=== PATIENT | female | born 1945 | race Caucasian/White ===

== ENCOUNTER 2020-04-30 13:13 | Emergency (ER) | payer OTHER ==
[2020-04-30] MEDS ORDERED: NA CHLORIDE 0.9% 1,000 ML ONE (15:09)
[2020-04-30] MEDS ORDERED: KETOROLAC 30 MG/ML INJ ONE (15:09)
[2020-04-30 15:18] LABS: Absolute Lymphocytes (CBC) 0.7 K/uL (0.7-4.9); Basophils % 0.6 % (0-1.3); Hematocrit 36.6 % (36.0-45.0); Lymphocytes % 15.4 % (15.3-44.8); MPV 7.6 fL (7.6-11.3); RBC Red Blood Cell Count 4.35 M/uL (3.86-4.86)
[2020-04-30 15:45] LABS: ALT/SGPT 22 U/L (12-78); AST/SGOT 18 U/L (15-37); Albumin 3.8 g/dL (3.4-5.0); Alkaline Phosphatase 107 U/L (45-117); BUN Blood Urea Nitrogen 15 mg/dL (7-18); Bicarbonate 31 mmol/L (21-32); Bilirubin Direct 0.1 mg/dL (0-0.2); Bilirubin Total 0.4 mg/dL (0.2-1.0); Glucose Level 101 mg/dL (74-106); Lipase 184 U/L (73-393); Potassium 3.6 mmol/L (3.5-5.1); Protein, Total 7.5 g/dL (6.4-8.2); Sodium Level 140 mmol/L (136-145)
--- NOTE | 2020-04-30 16:15 | RAD REPORT ---
EXAM DESCRIPTION: CT - Abdomen Pelvis W Contrast - 04/30/2020 4:07 pm CLINICAL HISTORY: Abdominal pain COMPARISON: none. TECHNIQUE: Computed axial tomography of the abdomen pelvis was obtained. 100 cc Isovue-300 was admin istered intravenously. Oral contrast was not requested which limits evaluation of bowel. All CT scans are performed using dose optimization technique as appropriate and may include automated exposure control or mA/KV adjustment according to patient size. FINDINGS: Hepatic and splenic granulomata Pancreas, adrenal appear unremarkable. Small renal cysts There is no evidence of diverticulitis. Normal appendix IMPRESSION: No acute abnormality is displayed.
[2020-04-30 16:56] LABS: Urine Blood TRACE (NEG); Urine Glucose NEGATIVE (NEG); Urine Protein NEGATIVE (NEG); Urine Specific Gravity 1.015 (1.005-1.030); Urine pH 6.5 (5.0-7.0)
--- NOTE | 2020-04-30 17:04 | ER ---
Nurse's Notes [facility] Name: Bobbi Eller Age: 75 yrs Sex: Female : 1945 Arrival Date: 04/30/2020 Time: 13:20 Bed 18 Private MD: Jermaine Tafoya Diagnosis: Zoster without complications Presentation: 04/30 13:41 Chief complaint: Patient states: "for the last week or so I have had stomach pains, and jd3 since yesterday I had a rash that started around my back and on my stomach.". Coronavirus screen: At this time, the client does not indicate any symptoms associated with coronavirus-19. Ebola Screen: Patient negative for fever greater than or equal to 101.5 degrees Fahrenheit, and additional compatible Ebola Virus Disease symptoms. Initial Sepsis Screen: Does the patient meet any 2 criteria? No. Patient's initial sepsis screen is negative. Does the patient have a suspected source of infection? No. Patient's initial sepsis screen is negative. Risk Assessment: Do you want to hurt yourself or someone else? Patient reports no desire to harm self or others. Onset of symptoms was April 24, 2020. 13:41 Method Of Arrival: Ambulatory jd3 13:41 Acuity: CECILIA 3 jd3 Historical: - Allergies: 13:44 No Known Allergies; jd3 - Home Meds: 13:44 None [Active]; jd3 - PSHx: 13:44 Hysterectomy; breast cancer; Carpal Tunnel Repair; Knee surgery; thumb; jd3 - Immunization history:: Adult Immunizations up to date. - Social history:: Smoking status: Patient/guardian denies using tobacco, but has a distant history of tobacco abuse. Screenin:23 Abuse screen: Denies threats or abuse. Denies injuries from another. Nutritional sv screening: No deficits noted. Tuberculosis screening: No symptoms or risk factors identified. Fall Risk None identified. Assessment: 15:00 General: Appears in no apparent distress. comfortable, well groomed, well developed, sv Behavior is calm, cooperative, appropriate for age. Pain: Complains of pain in low back area Pain currently is 6 out of 10 on a pain scale. Quality of pain is described as tender, throbbing, Pain began 1 day ago. Is intermittent. Neuro: Level of Consciousness is awake, alert, obeys commands, Oriented to person, place, time, situation, Appropriate for age Moves all extremities. Full function Speech is normal. Respiratory: Airway is patent Respiratory effort is even, unlabored, Respiratory pattern is regular, symmetrical. GI: Abdomen is flat, Abd is soft and non tender X 4 quads. Reports when she did have abd pain it was in the RLQ Patient currently denies abdominal pain. Derm: Skin is intact, Skin is pink, warm \\T\\ dry. Musculoskeletal: Range of motion: intact in all extremities. 15:28 Reassessment: Patient appears in no apparent distress at this time. No changes from sv previously documented assessment. Patient and/or family updated on plan of care and expected duration. Pain level reassessed. Patient is alert, oriented x 3, equal unlabored respirations, skin warm/dry/pink. Vital Signs: 13:44 BP 152 / 82; Pulse 84; Resp 17 S; Temp 99.1(TE); Pulse Ox 97% on R/A; Weight 72.57 kg jd3 (R); Height 5 ft. 1 in. (154.94 cm) (R); Pain 6/10; 15:15 BP 144 / 79; Pulse 71; Resp 16; Pulse Ox 99% ; sv 16:16 Pulse 63; Resp 18; Pulse Ox 96% on R/A; sv 13:44 Body Mass Index 30.23 (72.57 kg, 154.94 cm) jd3 ED Course: 13:20 Patient arrived in ED. mr 13:20 Jermaine Tafoya MD is Private Physician. mr 13:43 Triage completed. jd3 13:45 Arm band placed on. jd3 14:23 Radha Park RN is Primary Nurse. sv 14:23 Patient has correct armband on for positive identification. Bed in low position. Call sv light in reach. Door closed. Head of bed elevated. 14:31 Ritika Mulligan MD is Attending Physician. ma2 15:00 Inserted saline lock: 20 gauge in left antecubital area, using aseptic technique. Blood sv collected. Flushed left antecubital with 5 ml normal saline. 15:24 IV discontinued, intact, bleeding controlled, Pressure dressing applied, per pt request.sv 15:25 Inserted saline lock: 20 gauge in right antecubital area, using aseptic technique. sv Flushed right antecubital with 5 ml normal saline. 15:[address] Scan. sv 15:[address] Scan. sv 16:08 CT Abd/Pelvis - IV Contrast Only In Process Unspecified. EDMS 16:11 Patient moved back from CT. sv 16:11 Awaiting radiology results. sv 17:17 No provider procedures requiring assistance completed. Patient admitted, IV remains in sv place. intact. 19:31 Primary Nurse role handed off by Radha Park RN sv Administered Medications: 15:11 Drug: NS 0.9% 1000 ml Route: IV; Rate: 1 bolus; Site: left antecubital; sv 16:00 Follow up: Response: No adverse reaction; IV Status: Completed infusion; IV Intake: sv 1000ml 15:11 Drug: TORadol 30 mg Route: IVP; Site: left antecubital; sv 16:16 Follow up: Response: No adverse reaction sv Intake: 16:00 IV: 1000ml; Total: 1000ml. sv Outcome: 17:00 Condition: stable sv 17:00 Discharged to home ambulatory. sv 17:00 Discharge instructions given to patient, Instructed on discharge instructions, follow up and referral plans. medication usage, Demonstrated understanding of instructions, follow-up care, medications, Prescriptions given X 4. 17:03 Discharge ordered by . ginger 17:17 Patient left the ED. sv Signatures: Dispatcher [employer] EDMS Radha Park RN RN [facility] Brown, MODESTA Grove RN, Mohammad, MD MD ma2 Corrections: (The following items were deleted from the chart) 13:43 13:41 Onset of symptoms was April 30, 2020 hemant marcos 19:30 17:00 Admitted to Tele accompanied by tech, via wheelchair, room 222, with oxygen, with sv chart, Report called to Karin BYERS sv 19:30 17:00 Condition: stable sv sv 19:30 17:00 Instructed on the need for admit, sv sv
--- NOTE | 2020-04-30 17:04 | EDPHYS ---
Physician Documentation [facility] Name: Bobbi Eller Age: 75 yrs Sex: Female : 1945 Arrival Date: 04/30/2020 Time: 13:20 Bed 18 Private MD: Jermaine Tafoya ED Physician Ritika Mulligan HPI: 04/30 14:51 This 75 yrs old Female presents to ER via Ambulatory with complaints of ma2 Abdominal Pain, Back Pain. 14:51 The patient presents with pain that is acute, with no known mechanism of injury. The ma2 symptoms are located in the right flank . Onset: The symptoms/episode began/occurred gradually, 1 week(s) ago. Associated signs and symptoms: Pertinent negatives: constipation, fever, hematuria. Severity of symptoms: At their worst the symptoms were moderate, in the emergency department the symptoms are unchanged. The patient has not experienced similar symptoms in the past. Historical: - Allergies: 13:44 No Known Allergies; jd3 - Home Meds: 13:44 None [Active]; jd3 - PSHx: 13:44 Hysterectomy; breast cancer; Carpal Tunnel Repair; Knee surgery; thumb; jd3 - Immunization history:: Adult Immunizations up to date. - Social history:: Smoking status: Patient/guardian denies using tobacco, but has a distant history of tobacco abuse. ROS: 14:51 Constitutional: Negative for fever, chills, and weight loss. ma2 14:51 Abdomen/GI: Positive for abdominal pain, Negative for nausea and vomiting, nausea, diarrhea, constipation, abdominal distension, rectal bleeding, bowel incontinence. 14:51 All other systems are negative. Exam: 14:51 Constitutional: This is a well developed, well nourished patient who is awake, alert, ma2 and in no acute distress. Neck: Trachea midline, no thyromegaly or masses palpated, and no cervical lymphadenopathy. Supple, full range of motion without nuchal rigidity, or vertebral point tenderness. No Meningismus. Chest/axilla: Normal chest wall appearance and motion. Nontender with no deformity. No lesions are appreciated. Cardiovascular: Regular rate and rhythm with a normal S1 and S2. No gallops, murmurs, or rubs. Normal PMI, no JVD. No pulse deficits. Respiratory: Lungs have equal breath sounds bilaterally, clear to auscultation and percussion. No rales, rhonchi or wheezes noted. No increased work of breathing, no retractions or nasal flaring. Abdomen/GI: mildly tender to rlq tender, with normal bowel sounds. No distension or tympany. No guarding or rebound. No evidence of tenderness throughout. also has shingle rash on right lower back vesicular not crossing medline MS/ Extremity: Pulses equal, no cyanosis. Neurovascular intact. Full, normal range of motion. Neuro: Awake and alert, GCS 15, oriented to person, place, time, and situation. Cranial nerves II-XII grossly intact. Motor strength 5/5 in all extremities. Sensory grossly intact. Cerebellar exam normal. Normal gait. Vital Signs: 13:44 BP 152 / 82; Pulse 84; Resp 17 S; Temp 99.1(TE); Pulse Ox 97% on R/A; Weight 72.57 kg jd3 (R); Height 5 ft. 1 in. (154.94 cm) (R); Pain 6/10; 15:15 BP 144 / 79; Pulse 71; Resp 16; Pulse Ox 99% ; sv 16:16 Pulse 63; Resp 18; Pulse Ox 96% on R/A; sv 13:44 Body Mass Index 30.23 (72.57 kg, 154.94 cm) jd3 MDM: 14:31 Patient medically screened. [facility] 14:51 Differential diagnosis: Fatigue Fracture Scoliosis sprain. [facility] 17:03 Data reviewed: vital signs, nurses notes. Counseling: I had a detailed discussion with [facility] the patient and/or guardian regarding: the historical points, exam findings, and any diagnostic results supporting the discharge/admit diagnosis, the presence of at least one elevated blood pressure reading (>120/80) during this emergency department visit, the need for outpatient follow up. Response to treatment: the patient's symptoms have markedly improved after treatment. 04/30 14:51 Order name: Basic Metabolic Panel; Complete Time: 15:59 [facility] 04/30 14:51 Order name: CBC with Diff; Complete Time: 15:22 [facility] 04/30 14:51 Order name: Hepatic Function; Complete Time: 15:59 [facility] 04/30 14:51 Order name: Lipase; Complete Time: 15:59 [facility] 04/30 14:51 Order name: CT Abd/Pelvis - IV Contrast Only; Complete Time: 16:24 de2 04/30 16:46 Order name: Urine Dipstick--Ancillary (enter results) 04/30 14:51 Order name: IV Saline Lock; Complete Time: 15:11 de2 04/30 14:51 Order name: Labs collected and sent; Complete Time: 15:11 de2 04/30 14:51 Order name: Urine Dipstick-Ancillary (obtain specimen); Complete Time: 16:55 ma2 Administered Medications: 15:11 Drug: NS 0.9% 1000 ml Route: IV; Rate: 1 bolus; Site: left antecubital; sv 16:00 Follow up: Response: No adverse reaction; IV Status: Completed infusion; IV Intake: sv 1000ml 15:11 Drug: TORadol 30 mg Route: IVP; Site: left antecubital; sv 16:16 Follow up: Response: No adverse reaction sv Disposition: 04/30/20 17:03 Discharged to Home. Impression: Zoster without complications. - Condition is Stable. - Discharge Instructions: Neuropathic Pain, Shingles, Gtpy-rh-Oies. - Prescriptions for Neurontin 300 mg Oral Capsule - take 1 capsule by ORAL route At bedtime; 20 capsule. Acyclovir 400 mg Oral Tablet - take 1 tablet by ORAL route every 8 hours; 30 tablet. Hydrocortisone 0.5 % Topical Cream - apply 1 application by TOPICAL route every 12 hours As needed; 30 gram. Medrol (Kimani) 4 mg Oral Tablets, Dose Pack - take 1 tablet by ORAL route as directed - follow package instructions; 1 packet. - Medication Reconciliation Form, Thank You Letter, Antibiotic Education, Prescription Opioid Use form. - Follow up: Private Physician; When: Tomorrow; Reason: Continuance of care. Signatures: Dispatcher [employer] Radha Block RN RN sv Davies, Jonathon, RN RN jd3 Alzahri, Mohammad, MD MD ma2 Corrections: (The following items were deleted from the chart) 17:17 17:03 04/30/2020 17:03 Discharged to Home. Impression: Zoster without complications. sv Condition is Stable. Forms are Medication Reconciliation Form, Thank You Letter, Antibiotic Education, Prescription Opioid Use. Follow up: Private Physician; When: Tomorrow; Reason: Continuance of care. ma2
[2020-04-30 17:24] VITALS: TEMP 99.1
[2020-04-30 17:25] VITALS: BP 144/79
[2020-04-30 17:27] VITALS: O2SAT 96
== END 2020-04-30 17:17 | disposition home or self-care (01) ==
LOC: ER 13:13
DX: B02.9 Zoster without complications (principal); Z85.3 Personal history of malignant neoplasm of breast
CPT/HCPCS: 96361; 85025; 80048; 36415; 80076; 81003; 83690; 74177; 96374; 99284; Q9967; J7030

== ENCOUNTER → 2021-03-07 | Day surgery (SDC) | payer OTHER ==
[~2021-03-07] MED LIST: Ringers Lactate 1,000 ML IV ONE
--- NOTE | 2021-03-07 22:03 | RAD REPORT ---
EXAM DESCRIPTION: Ultrasound-guided vacuum assisted breast core biopsy CLINICAL HISTORY: Breast mass N60.91 COMPARISON: BREAST/AXILLA, COMPLETE dated 07/11/2016 FINDINGS: Informed consent was obtained and time-out was performed. The patient's right breast was prepped and draped in the usual sterile fashion. 1% lidocaine was used for local anesthetic purposes. This was of the mass in the right breast at the 12 o'clock position w hich was identified on the ultrasound from 02/04/2021 Utilizing aseptic technique and ultrasound guidance, a 12 gauge core biopsy device was used to obtain 3 core specimens through the mass of interest. A post biopsy clip was then placed. All collected material was sent for cytology. Patient tolerated procedure well. IMPRESSION: Successful ultrasound guided core biopsy of a right breast mass.
== END ==
LOC: DS 16:37
PROVIDERS: ATTEND Specialist
DX: N60.91 Unspecified benign mammary dysplasia of right breast (principal)
CPT/HCPCS: 19083; 88305; J7120

== ENCOUNTER 2021-03-23 07:30 | Day surgery (SDC) | payer OTHER ==
[2021-03-23] MEDS ORDERED: CEFAZOLIN/SWI 1gm 1 GM/10 ML SYR ONE (08:12)
[2021-03-23] MEDS ORDERED: Ringers Lactate 1,000 ML IV ONE (08:12)
--- NOTE | 2021-03-23 09:41 | RAD REPORT ---
EXAM DESCRIPTION: NM - Lymphoscintigraphy - 03/23/2021 9:09 am CLINICAL HISTORY: RT BREAST CA COMPARISON: Chest Pa And Lat (2 Views) dated 07/23/2018; Breast Core BX w/US Guidance dated 03/07/2021 ; Follow Up Breast Axilla Comp dated 02/04/2021; 3D DIAG UNI F/U dated 02/04/2021; 3D SCR SUSU RT UNI W/ CAD dated 01/10/2021 FINDINGS: Preoperative lymphoscintigraphy was performed of the right breast. Four separate injection s of 0.4 millicuries technetium sulfur colloid were injected. Immediate scintigraphic shows good loca lization of radiopharmaceutical. IMPRESSION: Successful preoperative right breast lymphoscintigraphy.
[2021-03-23] MEDS ORDERED: FENTANYL CITR 100 MCG/2 ML ONE (10:10)
[2021-03-23] MEDS ORDERED: propofoL 200 MG/20 ML VIAL IV ONE (10:10)
[2021-03-23] MEDS ORDERED: LIDOCAINE 1% MPF 5 ML VIAL ONE (10:10)
[2021-03-23] MEDS ORDERED: BUPIVACAINE 0.25% PF 30 ML VIAL ONE (10:24)
--- NOTE | 2021-03-23 10:40 | RAD REPORT ---
EXAM DESCRIPTION: US - Brst,Preop NL Wire Init w/Guid - 03/23/2021 9:50 am CLINICAL HISTORY: N Right breast carcinoma. COMPARISON: Breast Core BX w/US Guidance dated 03/07/2021 FINDINGS: Preoperative diagnosis: Right breast carcinoma. Post operative diagnosis: Same. Conscious Sedation: None Fluoroscopy time: None Contrast used: None Estimated blood loss: Minimal The right breast was prepped and draped in the usual sterile fashion. 1% lidocaine was infiltrated in to the subcutaneous tissues for local anesthesia. Utilizing ultrasound guidance, preoperative wire lo calization was performed of the somewhat poorly defined mass of interest 12 o'clock position right br east. The procedure was discussed with Dr. Avila. IMPRESSION: Successful ultrasound-guided right breast mass preoperative wire localization.
[2021-03-23] MEDS ORDERED: ROCURONIUM 50 MG/5 ML VIAL IV ONE (12:02)
[2021-03-23] MEDS ORDERED: METHYLENE BLUE 0.5% 10 ML AMP ONE (12:16)
[2021-03-23] MEDS ORDERED: KETOROLAC 30 MG/ML INJ ONE (12:36)
[2021-03-23] MEDS ORDERED: dexAMETHasone 10 MG/ML VIAL ONE (12:36)
[2021-03-23] MEDS ORDERED: ONDANSETRON 4 MG/2 ML VIAL ONE (12:36)
--- NOTE | 2021-03-23 13:17 | RAD REPORT ---
EXAM DESCRIPTION: US - Surgical Specimen - 03/23/2021 12:49 pm CLINICAL HISTORY: SPEC COMPARISON: Brst,Preop NL Wire Init w/Guid dated 03/23/2021; 3D SCR SUSU RT UNI W/CAD dated 01/10/2021; 3D DIAG UNI F/U dated 02/04/2021; Follow Up Breast Axilla Comp dated 02/04/2021; Breast Core BX w/US Gu idance dated 03/07/2021; Lymphoscintigraphy dated 03/23/2021 FINDINGS: Surgical breast specimen ultrasound was performed. The lesion of interest and wire is note d within the specimen. Some of the hypoechoic lesion is seen the come into relatively close approxima tion to the margin of the specimen, for which pathologic correlation would be advised. Findings were discussed with Dr. Wisdom.
[2021-03-23] MEDS ORDERED: EPHEDRINE SULF 50 MG/ML VIAL ONE (13:23)
[2021-03-23] MEDS ORDERED: NS 0.9% VIAL 10 ML ONE (13:23)
--- NOTE | 2021-03-23 13:42 | P.OP ---
Preoperative diagnosis: RIGHT Breast Invasive Ductal Carcinoma Postoperative diagnosis: RIGHT Breast Invasive Ductal Carcinoma Primary procedure: RIGHT Breast Lumpectomy with [place] Lymph Node Biopsy Anesthesia: GETA + Local Estimated blood loss: <20cc Specimen: Breast Mass with needle loc, additional margin, sentinel lymph node Findings: Negative margins grossly, sentinel lymph node negative Complications: None Transferred to: Recovery Room Condition: Good
[2021-03-23] MEDS ORDERED: GLYCOPYRROLATE 0.2 MG/ML SYR ONE (14:05)
[2021-03-23] MEDS ORDERED: NEOSTIGMINE 1 MG/ML -5 ML ONE (14:05)
[2021-03-23] MEDS: HYDROMORPHONE HCL 1 MG/ML INJ ONE ×4 (14:07→14:44)
--- NOTE | 2021-03-23 14:35 | OP ---
Date of Procedure: 03/23/2021 Surgeon: Angelo Avila MD, Preoperative Diagnosis: Right breast invasive ductal carcinoma. Postoperative Diagnosis: Right breast invasive ductal carcinoma. Procedure: Right breast partial mastectomy with sentinel lymph node biopsy. Anesthesia: General endotracheal plus local with 0.25% Marcaine. Estimated Blood Loss: Less than 20 mL. Specimens: 1.Breast mass with needle localization. 2.Additional margin. 3.[place] lymph node. Findings: 1.Negative margins grossly as confirmed on pathology and sentinel lymph node was negative as confirm ed by pathology. 2.Specimen sent to Dr. Atkins. Ultrasound examination confirmed negative margins as well grossly on i maging with ultrasound. Complications: None. Disposition: The patient was transferred to recovery room in good condition. Procedure In Detail: After informed consent was obtained, the patient was brought to the operating r oom, prepped and draped in the usual sterile fashion after adequate anesthesia was achieved. The pat ient had previous lymphoscintigraphy as well as needle localization and was brought to the operating room with the above-stated procedures that have been completed. After the patient had induction of a nesthesia, the breast was prepped. I injected methylene blue circumferentially in a periareolar fash ion. Circumferentially, the breast was massaged for approximately 5 minutes prior to procedure initi ation. At this point, the patient was then prepped and draped in the usual sterile fashion after cari quate anesthesia was achieved. I injected local anesthesia in a linear fashion overlying the tract o f the needle wire, which was placed into the specimen this morning under ultrasound guidance. At thi s point, I dissected down through subcutaneous tissues using electrocautery. I circumferentially dis sected in a conical fashion down to the clip and removed the tissue at this point and marking stitche s were applied, a short stitch superior long lateral. The specimen was sent to Dr. Atkins and the Ultr asound Department for examination of the specimen. One of the margins on the medial aspect appeared somewhat close and as such, I took an additional margin of tissue at this point and sent it for addit ional examination at this point and it came back as an appearing grossly negative on the ultrasound r eport by Dr. Atkins. I reviewed the images with Dr. Atkins and confirmed that there appeared to be a goo d tissue as such the specimen appeared to be completely removed. At this point, [facility], prepped and draped, re-performed a time-out and irrigated the breast area, placed on fiducia l clip marker circumferentially around the cavity with a medium clip footwear production machine operator and irrigated the area c opiously. There was a small bleeding vessel on the nipple-areolar to inferior aspect along the ducta l system, which I oversewed with a single [id number] using a 3-0 Vicryl suture with good approxi mation of tissues. The area was irrigated once again and the deep dermal planes were closed using in terrupted 3-0 Vicryl suture and the skin was closed with 4-0 Monocryl in a running fashion. Dermabon d placed over top. At this point, I turned my attention to the axilla, used the gamma probe at this point to localize to the area of the axilla where the sentinel lymph node was likely involved and ane sthetized the skin, cut through with a 15-blade down to subcutaneous tissues, dissected into the axil hema space. I then dissected circumferentially using electrocautery and I placed the probe into the area. I then dissected down to find the sentinel lymph node. This was found to be blue consistent w ith previous methylene blue injection. I then placed clips on the proximal and distal side of the ly mphatic channels and removed this and sent it off for pathologic examination. The counts were approx imately 2000 ex vivo. I then examined the axilla and there were no additional findings greater than 5% on the remainder of the axillary inspection with the gamma probe. At this point, I irrigated the axilla copiously and closed the deep dermal plane using interrupted 3-0 Vicryl suture. I confirmed w ith the pathologist that the specimen appeared grossly negative on sentinel lymph node examination an d as such, I decided to close the skin at this point. Once the diagnosis was conveyed, the skin was then closed with 4-0 Monocryl in a running fashion. Dermabond placed over top. The patient tolerate d the procedure well without evidence of complication and transferred to PACU in good condition. All counts were correct at the end of the case. NEETA/LAKISHA Voice ID: [id number] Report ID: [id number]
[2021-03-23 14:48] VITALS: O2SAT 99
[2021-03-23 15:38] VITALS: BP 130/71; TEMP 98.5
[2021-03-23] MEDS: HYDROCODONE/APAP 5/325 MG TAB ONE ×2 (15:55→16:00)
== END 2021-03-23 16:30 | disposition home or self-care (01) ==
LOC: DS 07:30
PROVIDERS: ATTEND Surgery
PROC: 0HBT0ZZ Excision of Right Breast, Open Approach (ICD-10-PCS; principal; 2021-03-23 09:30)
DX: C50.911 Malignant neoplasm of unspecified site of right female breast (principal); Z20.822 Contact with and (suspected) exposure to COVID-19
CPT/HCPCS: 88305; 88307; 76098; 19285; 78195 ×2; 19301; 38525; U0003; J2704; J3010; J1100; J1170 ×2; J2710; J0690; J7120; J2405; A9541

== ENCOUNTER 2021-04-29 08:34 | Day surgery (SDC) | payer OTHER ==
[2021-04-26 12:24] LABS: Absolute Lymphocytes (CBC) 1.1 K/uL (0.7-4.9); Basophils % 0.5 % (0-1.3); Hematocrit 34.9 % (36.0-45.0); MPV 7.2 fL (7.6-11.3); RBC Red Blood Cell Count 4.14 M/uL (3.86-4.86)
[2021-04-26 12:44] LABS: BUN Blood Urea Nitrogen 15 mg/dL (7-18); Bicarbonate 30 mmol/L (21-32); Glucose Level 100 mg/dL (74-106); Sodium Level 138 mmol/L (136-145)
[2021-04-29] MEDS ORDERED: CEFAZOLIN/SWI 2gm 2 GM/20 ML SYR ONE (09:30)
[2021-04-29] MEDS ORDERED: Ringers Lactate 1,000 ML IV ONE (09:30)
[2021-04-29] MEDS ORDERED: FENTANYL CITR 100 MCG/2 ML ONE (10:00)
[2021-04-29] MEDS ORDERED: KETOROLAC 30 MG/ML INJ ONE (10:00)
[2021-04-29] MEDS ORDERED: propofoL 200 MG/20 ML VIAL IV ONE (10:00)
[2021-04-29] MEDS ORDERED: ONDANSETRON 4 MG/2 ML VIAL ONE ×2 (10:01→12:30)
[2021-04-29] MEDS ORDERED: LIDOCAINE 2% MPF 5 ML VIAL ONE (10:01)
[2021-04-29] MEDS ORDERED: dexAMETHasone 4 MG/ML VIAL ONE (10:02)
[2021-04-29] MEDS ORDERED: BUPIVACAINE 0.25% PF 10 ML VIAL ONE (10:10)
--- NOTE | 2021-04-29 11:36 | P.OP ---
Preoperative diagnosis: RIGHT Breast Cancer Postoperative diagnosis: RIGHT Breast Cancer Primary procedure: RIGHT Completion Simple Total Mastectomy Anesthesia: GETA + Local Estimated blood loss: <20cc Specimen: breast tissue Findings: good viable flaps Complications: None Drain(s): VALENTINO drain (10mm VALENTINO) Transferred to: Recovery Room Condition: Good
[2021-04-29] MEDS: HYDROMORPHONE HCL 1 MG/ML INJ ONE ×2 (12:10→12:15)
--- NOTE | 2021-04-29 12:49 | OP ---
Date of Procedure: 04/29/2021 Surgeon: Angelo Avila MD, Brief History Of Present Illness: The patient is a 76-year-old female with a history of left breast cancer, status post mastectomy many years ago, greater than 20 years ago. She is status post right breast lumpectomy with sentinel lymph node biopsy. The patient discussed her options with her radiation oncologist as well as aviation electronic warfare operator-oncologist. She opted to not have radiation treatment and as such after careful consideration and consultation with family had decided to perform a completion simple mastectomy so she would not have to get additional radiation and as such she came to my office. We had a discussion regarding this and she opted and requested a completion mastectomy on the right. Preoperative Diagnosis: History of right breast cancer. Postoperative Diagnosis: History of right breast cancer. Procedure Performed: Right completion simple mastectomy. Anesthesia: General endotracheal plus local. Estimated Blood Loss: 20 mL. Specimen: Breast tissue. Findings: Good viable flaps. Complications: None. Drains: A 10 mm round VALENTINO drain. Disposition: The patient was transferred to recovery room in good condition. Procedure In Detail: After informed consent was obtained, the patient was brought to the operating room, prepped and draped in the usual sterile fashion. After adequate anesthesia was achieved, I marked off the margins of the dissection. With a marking pen, I made an elliptical incision including the previous incision to the skin from her previous lumpectomy to be included in the specimen. At this point, an elliptical incision was made down through subcutaneous tissues with a 15 blade. Electrocautery was used to dissect down through subcutaneous tissues and ultimately flaps were elevated circumferentially around proceeding superiorly to the infraclavicular space as well as medially to the sternal border, inferiorly to the inframammary crease, and laterally into the area of the serratus, but the fascia plane and axillary contents were not entered at this point. Circumferentially dissected the breast tissue, taking down Cheko ligament to keep the flaps thin but viable throughout the procedure. At this point, I began peeling the breast tissue off the prepectoral fascia medially and pulled the breast back laterally off the pectoralis major muscle taking the prepectoral fascia. Hemostasis was controlled easily with electrocautery. The specimen was ultimately ligated at this point and marking sutures short superior and long lateral were placed on the breast tissue and sent off for pathologic examination with the ellipse of skin including the nipple-areolar complex. At this point, the area was copiously irrigated and all hemostasis was achieved with electrocautery quite easily. At this point, the area was irrigated once again. A 10 mm round VALENTINO drain was brought out through the inferolateral separate stab incision and secured to the skin using a 3-0 nylon suture. I then cleansed the breast tissue once again after all nonviable tissue was removed and suctioned out and cleansed. I then closed the deep dermal plane using interrupted 3-0 Vicryl sutures and closed the skin with a running 4-0 Monocryl in a running fashion. Dermabond was placed over top. Pressure dressing was placed over the top of the breast and chest was wrapped. The patient tolerated the procedure well without evidence of complication and transferred to PACU in good condition. All counts were correct. NEETA/LAKISHA Voice ID: [id number] Report ID: [id number] RIGO
[2021-04-29] MEDS ORDERED: HYDROCODONE/APAP 7.5/325 MG TAB ONE (13:15)
[2021-04-29 13:22] VITALS: TEMP 97.3; O2SAT 100
[2021-04-29 14:26] VITALS: BP 128/57
== END 2021-04-29 14:20 | disposition home or self-care (01) ==
LOC: OR 08:34
PROVIDERS: ATTEND Surgery
PROC: 0HTT0ZZ Resection of Right Breast, Open Approach (ICD-10-PCS; principal; 2021-04-29 09:30)
DX: C50.911 Malignant neoplasm of unspecified site of right female breast (principal); Z85.3 Personal history of malignant neoplasm of breast; Z20.822 Contact with and (suspected) exposure to COVID-19
CPT/HCPCS: 85025; 80048; 36415; 88307; 19307; U0003; J2704; J1100; J3010; J1170; J0690; J7120; J2405 ×2

== ENCOUNTER 2021-07-20 06:30 | Day surgery (SDC) | payer OTHER ==
[2021-07-20] MEDS ORDERED: Ringers Lactate 1,000 ML IV ONE (06:44)
[2021-07-20] MEDS ORDERED: EPINEPHRINE/PF 1 MG/ML AMP ONE (06:56)
[2021-07-20] MEDS ORDERED: GLYCOPYRROLATE 0.2 MG/ML SYR ONE (07:23)
[2021-07-20] MEDS ORDERED: LIDOCAINE 1% MPF 30 ML VIAL ONE (07:23)
[2021-07-20] MEDS ORDERED: propofoL 200 MG/20 ML VIAL IV ONE ×2 (07:23)
--- NOTE | 2021-07-20 08:15 | ENDO RPT ---
[address], [address] COLONOSCOPY PROCEDURE REPORT EXAM DATE: 07/20/2021 PATIENT NAME: Bobbi Eller MR #: [id number] BIRTHDATE: 1945 ATTENDING: Michel Rivera Dr STATUS: outpatient GLASSWARE DEFECT REPAIRER: Opal Sebastian RN and Roslyn Huang INDICATIONS: The patient is a 76 yr old Female here for a colonoscopy due to personal history of colon polyps PROCEDURE PERFORMED: Colonoscopy with biopsy - cold polypectomy MEDICATIONS: Per Anesthesia. ESTIMATED BLOOD LOSS: None CONSENT: The patient understands the risks and benefits of the procedure and understands that these risks include, but are not limited to: sedation, allergic reaction, infection, perforation and/or bleeding. Alternative means of evaluation and treatment include, among others: physical exam, x-rays, and/or surgical intervention. The patient elects to proceed with this endoscopic procedure. DESCRIPTION OF PROCEDURE: During intra-op preparation period all mechanical medical equipment was checked for proper function. Hand hygiene and appropriate measures for infection prevention was taken. Procedure, possible complications, alternatives including, but not limited to possibility of bleeding, perforation, tear, infection, sepsis, need for surgery, need for blood transfusion, were explained to the patient. After the risks, benefits and alternatives of the procedure were thoroughly explained, Informed consent was verified, confirmed and timeout was successfully executed by the treatment team. The patient was placed in the left lateral position. A digital rectal exam was performed and revealed no abnormalities of the rectum. After appropriate level of anesthesia, the scope was passed. The EC-[id number] ([id number]) endoscope was introduced through the anus and advanced to the terminal ileum which was intubated for a short distance. The quality of the prep was good. The instrument was then slowly withdrawn as the colon was fully examined. Scope withdrawal time was 8 minutes. COLON FINDINGS: A smooth sessile polyp measuring 3 mm in size was found in the descending colon. A polypectomy was performed with cold forceps. Mild diverticulosis was noted in the sigmoid colon. No bleeding was noted from the diverticulosis. Small internal hemorrhoids were found. Retroflexed views revealed small hemorrhoids. The scope was then completely withdrawn from the patient and the procedure terminated. ADVERSE EVENTS: There were no complications. IMPRESSIONS: 1. 3 mm sessile polyp in the descending colon; polypectomy was performed with cold forceps 2. Mild diverticulosis in the sigmoid colon 3. Small internal hemorrhoids 4. Intubation to terminal ileum RECOMMENDATIONS: 1. await biopsy results 2. avoid NSAIDS for 2 weeks RECALL: Return in 3 year(s) for Colonoscopy. Michel Rivera Dr eSigned: Michel Rivera Dr 07/20/2021 8:15 AM cc: CPT CODES: ICD9 CODES: 211.3 Benign neoplasm of colon PATIENT NAME: Bobbi Eller MR#: [id number]
[2021-07-20 08:32] VITALS: TEMP 97
[2021-07-20 08:36] VITALS: BP 160/63; O2SAT 98
== END 2021-07-20 09:28 | disposition home or self-care (01) ==
LOC: OR 06:30
PROVIDERS: ATTEND Internal Medicine Gastroenterology
PROC: 0DBM8ZX Excision of Descending Colon, Via Natural or Artificial Opening Endoscopic, Diagnostic (ICD-10-PCS; principal; 2021-07-20 07:30)
DX: Z86.010 Personal history of colon polyps (principal); I10 Essential (primary) hypertension; D12.4 Benign neoplasm of descending colon; K57.30 Diverticulosis of large intestine without perforation or abscess without bleeding; K64.8 Other hemorrhoids; Z20.822 Contact with and (suspected) exposure to COVID-19
CPT/HCPCS: 88305; 45380; U0003; J2704 ×2; J7120; J0171

== ENCOUNTER 2021-10-12 05:54 | Observation (INO) | payer BC, OTHER ==
--- NOTE | 2021-10-07 08:40 | RAD REPORT ---
EXAM DESCRIPTION: RAD - Chest Pa And Lat (2 Views) - 10/07/2021 8:33 am CLINICAL HISTORY: pre op pending knee replacement COMPARISON: Chest Pa And Lat (2 Views) dated 07/23/2018; CHEST PA AND LAT 2 VIEW dated 06/25/2014; JEAN ST PA AND LAT 2 VIEW dated 07/18/2011; CHEST PA AND LAT 2 VIEW dated 05/03/2010 FINDINGS: Lines: None. Lungs: No evidence of edema or pneumonia. Pleural: No significant pleural effusions or pneumothorax. Cardiac: The heart size is within normal limits. Bones: No acute fractures. Other: IMPRESSION: No acute cardiopulmonary disease.
[2021-10-07 08:51] LABS: Absolute Lymphocytes (CBC) 0.8 K/uL (0.7-4.9); Hematocrit 36.2 % (36.0-45.0); Lymphocytes % 19.1 % (15.3-44.8); MPV 7.2 fL (7.6-11.3); RBC Red Blood Cell Count 4.32 M/uL (3.86-4.86)
[2021-10-07 08:53] LABS: Protime INR 0.92
[2021-10-07 09:04] LABS: BUN Blood Urea Nitrogen 16 mg/dL (7-18); Bicarbonate 29 mmol/L (21-32); Glucose Level 128 mg/dL (74-106); Potassium 3.7 mmol/L (3.5-5.1); Sodium Level 139 mmol/L (136-145)
--- NOTE | 2021-10-07 13:03 | EKG ---
Test Date: 2021-10-07 Test Time: 08:16:36 Gaggerman: CHANDRAKANT MEASUREMENT RESULTS: Intervals: Rate: 69 MI: 166 QRSD: 90 QT: 388 QTc: 415 Meigs: P: 70 MI: 166 QRS: 67 T: 62 INTERPRETIVE STATEMENTS: Sinus rhythm with premature atrial complexes Otherwise normal ECG Compared to ECG 07/19/2017 10:54:38 Atrial premature complex(es) now present Left ventricular hypertrophy no longer present Electronically Signed On 10-07-21 13:02:43 FULL STACK WEB DEVELOPER by Phuc Jefferson
[2021-10-12] MEDS ORDERED: CELECOXIB 100 MG CAPSULE ONE (06:04)
[2021-10-12] MEDS ORDERED: GABAPENTIN 100 MG CAP ONE (06:05)
[2021-10-12] MEDS ORDERED: CEFAZOLIN SODIUM 1 GM/VIAL ONE ×2 (06:05→08:47)
[2021-10-12] MEDS ORDERED: Ringers Lactate 1,000 ML IV ONE ×2 (06:06→10:22)
[2021-10-12] MEDS ORDERED: ACETAMINOPHEN 500 MG TAB ONE (06:06)
[2021-10-12] MEDS ORDERED: Oxycodone HCl/Acetaminophen 1 TAB TAB ONE (06:06)
[2021-10-12] MEDS ORDERED: BUPIVACAINE 0.25% PF 10 ML VIAL ONE (06:24)
[2021-10-12] MEDS ORDERED: LIDOCAINE 1% MPF 5 ML VIAL ONE (06:24)
[2021-10-12] MEDS ORDERED: FENTANYL CITR 100 MCG/2 ML ONE (06:25)
[2021-10-12] MEDS ORDERED: HYDROMORPHONE HCL 1 MG/ML INJ ONE (06:25)
[2021-10-12] MEDS ORDERED: MIDAZOLAM HCL 2 MG/2 ML INJ ONE ×2 (06:25)
[2021-10-12] MEDS ORDERED: dexAMETHasone 4 MG/ML VIAL ONE (06:26)
[2021-10-12] MEDS ORDERED: CELECOXIB 100 MG CAPSULE PO ONE (06:35)
[2021-10-12] MEDS ORDERED: ACETAMINOPHEN 500 MG TAB PO ONE (06:35)
[2021-10-12] MEDS ORDERED: GABAPENTIN 100 MG CAP PO ONE (06:37)
[2021-10-12] MEDS ORDERED: Oxycodone HCl/Acetaminophen 1 TAB TAB PO ONE (06:38)
[2021-10-12] MEDS ORDERED: propofoL 200 MG/20 ML VIAL IV ONE (07:36)
[2021-10-12] MEDS ORDERED: LIDOCAINE 2% MPF 5 ML VIAL ONE (07:36)
[2021-10-12] MEDS ORDERED: KETAMINE HCL 500 MG/5 ML VIAL ONE (07:37)
[2021-10-12] MEDS ORDERED: TRANEXAMIC ACID 1,000 MG in NA CHLORIDE 0.9% 50 ML IV SCH (08:00)
[2021-10-12] MEDS ORDERED: ONDANSETRON 4 MG/2 ML VIAL ONE (08:50)
[2021-10-12] MEDS ORDERED: ONDANSETRON 4 MG/2 ML VIAL IV PRN (10:42)
[2021-10-12] MEDS ORDERED: DOCUSATE NA 100 MG CAP PO PRN (10:42)
--- NOTE | 2021-10-12 10:42 | P.BOP ---
Preoperative diagnosis: right knee osteoarthritis Postoperative diagnosis: same Primary procedure: right total knee arthroplasty Game Producer: NONE,NONE Estimated blood loss: 20 cc Specimen: right knee bone remnants Findings: see dictation Anesthesia: General Complications: None Implants: Biomet Essence Persona 7 CR femur, E tibia, 29 patella, 11 mm poly Fluids & blood products: per anesthesia record; TT: 65 mins @ 300 mmHg Transferred to: Recovery Room Condition: Good
[2021-10-12] MEDS ORDERED: TRAMADOL HCL 50 MG TAB PO PRN (10:45)
[2021-10-12 11:26] LABS: Hematocrit 33.1 % (36.0-45.0)
[2021-10-12] MEDS: MORPHINE 4 MG/ML SYR IV PRN ×2 (11:28→11:39)
[2021-10-12] MEDS ORDERED: MORPHINE 4 MG/ML SYR IV ONE ×2 (11:28→11:39)
[2021-10-12 11:41] VITALS: O2SAT 100
--- NOTE | 2021-10-12 11:45 | RAD REPORT ---
EXAM DESCRIPTION: RAD - Knee Right 2 View - 10/12/2021 11:09 am CLINICAL HISTORY: Post Opknee replacement COMPARISON: No comparisons FINDINGS: Right total knee prosthesis has been placed. No suspicious or unexpected bone, joint or im plant finding. Skin zohra are present anteriorly. Air in the soft tissues anteriorly is not unexpec larisa. No foreign body or retained surgical device.
--- OUTSIDE RECORDS SUMMARY | 2021-10-12 12:19 | XMS REPORT | Clinical Summary ---
:1945 Author Organization [facility] MD [facility] Address [address] [place] [address] Care Team Providers Name Role Phone Jitendra Garnett MD Primary Care Provider Vinicius Mills MD Unavailable Allergies Not on File Medications Not on file Active Problems Not on file Encounters Date Type Specialty Care Team Description 02/11/2021 Documentation Radiology Mirela Sen, RN 02/11/2021 Orders Only Breast Surgical Betty Rios Mammogrserena troy abnormal Oncology PA (Primary Dx) after 10/12/2020 Social History Tobacco Use Types Packs/Day Years Used Date Never Assessed Sex Assigned at Date Recorded Not on file Job Start Date Occupation Industry Not on file Not on file Not on file Last Filed Vital Signs Not on file Plan of Treatment Health Maintenance Due Date Last Done Comments COVID-19 Vaccination (1) 1950 Results Not on fileafter 10/12/2020 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
--- OUTSIDE RECORDS SUMMARY | 2021-10-12 12:19 | XMS REPORT | Continuity of Care Document ---
:1945 Author Organization [facility] t Address [address] [place] [address] Care Team Providers Name Role Phone [phone] Primary Care Physician Unavailable SYSTEM, NOT IN Attending Clinician Unavailable Francy BYERS Attending Clinician Unavailable Blanca BRANDT Attending Clinician Problems This patient has no known problems. Allergies, Adverse Reactions, Alerts This patient has no known allergies or adverse reactions. Social History Social Habit Start Date Stop Date Quantity Comments Source Sex Assigned At [birth year] MD Martin 00:00:00 00:00:00 Medications This patient has no known medications. Procedures This patient has no known procedures. Plan of Care Planned Activity Planned Date Details Comments Source Future Scheduled Test 1950 00:00:00 COVID-19 Vaccination MD Martin (1) [code = COVID-19 Vaccination (1)] Encounters Start End Encounter Admission Attending Care Care Encounter Source Date/Time Date/Time Type Type Clinicians Facility Department ID 2021-10-06 [facility] [id number] [facility] [address] 10:02:02 [facility] 2021-02-11 Outpatient SYSTEM, [facility] [id number] 14:32:22 PROVIDER Gregg o n Results This patient has no known results.
[2021-10-12] MEDS ORDERED: MORPHINE 2 MG/ML SYR IV PRN (13:00)
[2021-10-12 13:09] VITALS: BMI 32.5
[2021-10-12] MEDS: CEFAZOLIN 1 GM in NA CHLORIDE 0.9% 50 ML IVPB SCH (16:12)
--- NOTE | 2021-10-12 17:05 | P.OP ---
Preoperative diagnosis: right knee osteoarthritis Postoperative diagnosis: same Primary procedure: right total knee arthroplasty Anesthesia: general LMA Estimated blood loss: 20 cc Specimen: right knee bone remnants Findings: see dictation Operative Technique: Indication For Procedure: Bobbi is a 76 year-old female presenting to my clinic with signs, symptoms and x-ray findings consistent with severe right knee osteoarthritis. I discussed with the patient at length risks and benefits associated with operative and nonoperative treatment. She had failed conservative treatment measures and had significant difficulties with ADLs secondary to her pain. We discussed operative treatment and elected to proceed with right total knee arthroplasty. She expressed understanding and elected to proceed with operative treatment. Description Of Procedure: After informed consent was obtained, the patient was identified in the preoperative holding area. The right lower extremity was marked. The patient was then taken to the PACU where she underwent a right lower extremity adductor canal block performed by Anesthesia. She was then taken to the operating room, transferred to the operating table in supine fashion, and placed under general anesthesia. The right lower extremity was then prepped and draped in usual sterile fashion. A time-out was initiated. The correct patient and procedure were confirmed and identified. The patient did receive her preoperative prophylactic antibiotics. The right lower extremity was then exsanguinated and tourniquet was inflated to 300 mmHg. Approximately 15 cm longitudinal incision was made centered over the anterior aspect of the right knee. Dissection was then taken to the extensor mechanism and a medial parapatellar arthrotomy was performed. The patella was everted and dislocated laterally and the knee was flexed in the fat pad. Medial lateral meniscus and ACL were all excised exposing the distal femur. Excess hypertrophic synovium was also excised within the suprapatellar pouch. The patient had an MRI of her right knee preoperatively for surgical planning and creation of cutting blocks. The cutting block was then placed over the distal femur and pins were then placed. The distal femoral cutting block was then placed over the pins. Knee joint was then used to ensure proper depth cut and the distal femur was then cut. The chamfer cutting guide was then placed over the distal end of the femur. Anterior, posterior cuts as well as anterior and posterior chamfer cuts were then made again confirming proper depth of the cut using an Jarret wing. Excess bone remnants were then sent to pathology for further evaluation. Next, attention was taken to the proximal tibia. A tibial jig and tibial cutting block was then placed on proximal aspect of the right tibia and locked into position. Pins were then placed and alignment guide was then used to confirm proper alignment of the cut and then coronal and sagittal planes. Once this was confirmed, the cutting jig was placed over the pins and the proximal tibia was cut. Sizing trays were then selected and size 10 mm spacer was used and there was good overall balance in flexion and extension. Next, the trial implants were then placed using the size 7 standard CR femur and a size E tibia and an 11 mm CR poly. There was overall good range of motion and good stability. The trial implants were then removed. This improved the overall stability of the knee and components. The wound was then irrigated thoroughly with normal saline and the knee was then injected with 30 cc of 0.5% Marcaine both in the posterior capsule and mediallateral gutters as well as quadriceps tendon and periosteum. The tibia was then punched. The femur was dr illed. The cement was then prepared on the back table. Cement was then placed first on the tibial surface followed by size E tibia. Excess cement was removed with Bethel elevators. Size 7 standard CR femur was then placed on the distal femur after cement was placed on the distal femur. Excess cement was then removed and a size 11 mm CR trial poly was then placed. The knee was held in extension as the cement hardened. Undersurface of the patella was prepared debriding osteophytes using rongeurs as well as osteophytes.. Cement was placed on the undersurface of the patella after it was cut and a size 29 patella was placed. Once the cement was hardened, the knee was ranged, there was good overall stability both in flexion, extension and as well as stability with varus and valgus stresses. Trial poly was then removed and a size 11 mm CR poly was then placed and locked into position. The knee was then ranged again. There was good overall range of motion both for flexion and extension with good stability. The wound was then irrigated again thoroughly with normal saline using pulse lavage. Tourniquet was let down. Hemostasis was achieved using Bovie electrocautery. Extensor mechanism was then approximated using a #1 Vicryl both in interrupted and running fashion. The fascia was then approximated using 0 Vicryl. Subcutaneous tissue was approximated with a 2-0 Vicryl. Skin was approximated using zohra. Sterile dressings were applied. The patient was awakened and transferred back in stable condition Complications: None Implants: Biomet Essence Persona 7 CR femur, E tibia, 32 patella, 11 mm poly Fluids & blood products: per anesthesia record; TT: 65 mins @ 300 mmHg Transferred to: Recovery Room Condition: Good
[2021-10-12] MEDS: [UNRECOGNIZED DRUG - OTHER] PO SCH (21:00)
[2021-10-12] MEDS: HYDROCODONE/APAP 7.5/325 MG TAB PO PRN (21:34)
[2021-10-13] MEDS ORDERED: NA CHLORIDE 0.9% 250 ML ONE ×2 (00:49→08:08)
[2021-10-13] MEDS: CEFAZOLIN 1 GM in NA CHLORIDE 0.9% 50 ML IVPB SCH ×2 (00:54→09:31)
[2021-10-13 05:48] LABS: Hematocrit 29.1 % (36.0-45.0)
[2021-10-13] MEDS ORDERED: ENOXAPARIN 30 MG/0.3 ML SQ SCH (06:00)
[2021-10-13] MEDS: HYDROCODONE/APAP 7.5/325 MG TAB PO PRN ×2 (06:49→11:46)
[2021-10-13] MEDS: [UNRECOGNIZED DRUG - OTHER] PO SCH (08:01)
[2021-10-13] MEDS ORDERED: CELECOXIB 100 MG CAPSULE PO SCH (09:00)
[2021-10-13] MEDS ORDERED: MULTIVIT W/ MINERAL TAB PO SCH (09:00)
[2021-10-13] MEDS ORDERED: CALCIUM CARB 500MG/VIT D 200 IU TAB PO SCH (09:00)
[2021-10-13] MEDS ORDERED: VITAMIN D 1000 UNIT TAB PO SCH (09:00)
[2021-10-13 12:22] VITALS: BP 130/58; TEMP 97.7
--- NOTE | 2021-10-13 13:12 | P.DS ---
Admission Date: 10/12/21 Discharge Date: 10/13/21 Disposition: DC HOME/HOME HEALTH CARE Discharge Condition: GOOD Reason for Admission: s/p R TKA Consultations: none Procedures: R TKA 10/12/21 Brief History of Present Illness: Bobbi is a 76-year-old female who underwent right total knee arthroplasty on October 12, 2021 and was admitted to the floor in stable condition. Hospital Course: Bobbi underwent her right total knee arthroplasty on October 12, 2021 without complication. She was admitted to floor in stable condition. Physical therapy was consulted to aid with mobilization. Patient mobilized on the day of surgery as well as the day following without problems. She was discharged on October 13, 2021 in stable condition. She was given a dose of Lovenox while in the hospital and will continue with Xarelto for DVT prophylaxis after discharge. She will follow up in 2 weeks for staple removal. Vital Signs/Physical Exam: Temp Pulse Resp BP Pulse Ox 97.7 F 70 16 130/58 L 97 10/13/21 12:00 10/13/21 12:00 10/13/21 12:00 10/13/21 12:00 10/13/21 12:00 Laboratory Data at Discharge: WBC 4.00 K/uL (4.3-10.9) L 10/07/21 08:22 Hgb 9.7 g/dL (12.0-15.0) L 10/13/21 05:15 Hct 29.1 % (36.0-45.0) L 10/13/21 05:15 Plt Count 287 K/uL (152-406) 10/07/21 08:22 PT 10.6 SECONDS (9.5-12.5) 10/07/21 08:22 INR 0.92 10/07/21 08:22 APTT 32.5 SECONDS (24.3-36.9) 10/07/21 08:22 Sodium 139 mmol/L (136-145) 10/07/21 08:22 Potassium 3.7 mmol/L (3.5-5.1) 10/07/21 08:22 BUN 16 mg/dL (7-18) 10/07/21 08:22 Creatinine 0.56 mg/dL (0.55-1.3) 10/07/21 08:22 Glucose 128 mg/dL (74-106) H 10/07/21 08:22 Home Medications: Multivitamin/Iron/Folic Acid [Centrum Adults Tablet] 1 each PO DAILY 03/21/21 Cholecalciferol (Vitamin D3) [Vitamin D3] 1,000 unit PO DAILY 04/27/21 Vit C/E/Zn/Coppr/Lutein/Zeaxan [Preservision Areds 2 Softgel] 1 each PO BID 04/27/21 Calcium Carbonate/Vitamin D3 [Caltrate 600 Plus D3 Tablet] 1 each PO DAILY 09/20 04/10 Hydrocodone 7.5/APAP 325 [[place] 7.5/325 mg*] 1 tab PO Q4H PRN tab 10/13/21 Physician Discharge Instructions: Keep dressing clean dry and intact. Begin Xarelto tomorrow October 14, 2021 with breakfast and take once daily. Follow-up with Dr. Cummings in 2 weeks for staple removal. Wear bilateral MATY hose for 2 weeks. Diet: Regular Activity: Weight bearing as tolerated Followup: Ron Cummings MD [ACTIVE - CAN ADMIT] - 1-2 Weeks Macy Patel NP [Primary Care Provider] - 1-2 Weeks
== END 2021-10-13 15:32 | disposition home health service (06) ==
LOC: OR 05:54 → 2ND 12:00
PROVIDERS: ADMIT Orthopaedic Surgery Sports Medicine; ATTEND Orthopaedic Surgery Sports Medicine
PROC: 0SRC069 Replacement of Right Knee Joint with Oxidized Zirconium on Polyethylene Synthetic Substitute, Cemented, Open Approach (ICD-10-PCS; principal; 2021-10-12 08:00)
DX: M17.11 Unilateral primary osteoarthritis, right knee (principal); Z96.652 Presence of left artificial knee joint; Z85.3 Personal history of malignant neoplasm of breast
CPT/HCPCS: 93005; 85025; 80048; 36415 ×3; 85610; 88305; 88311; 85730; 85018 ×2; 85014 ×2; 71046; 73560; 97110 ×3; 97116 ×2; 97139; 97161; 97530 ×3; 94010; 27447; U0002; J2704; J1100; J1650; J2250; J3010; J1170; J7120 ×2; J7050; J2405 ×2; J0690 ×5; G0378 ×3; J2270

== ENCOUNTER 2022-08-05 12:09 | Emergency (ER) | payer BC, OTHER ==
--- OUTSIDE RECORDS SUMMARY | 2022-08-05 12:16 | XMS REPORT | Continuity of Care Document ---
:[address] [facility] t Address [address] [place] [address] Care Team Providers Name Role Phone [phone] Primary Care Physician Unavailable SYSTEM, PROVIDER NOT IN Attending Clinician Unavailable Payers Payer Name Policy Type Policy Number Effective Date Expiration Date S ebony Blue Cross 6 [id number] 2021 Common Spiri t Blue Shield of 00:00:00 - [facility] Problems Condition Condition Condition Status Onset Resolution Last Treating Co mments Source Name Details Category Date Date Treatment Clinician Date [id number] Arthritis Problem Active Co mmon [id number] of knee, Spirit right - [facility] [id number] Status Problem Active Commo n 105 post total [facility] right knee - [facility] replac[facility] Malignant Malignant Problem Active Com mon neoplasm neoplasm [facility] of female of - [facility] breast overl[facility]in [facility] female [place] breast [id number] Primary Problem Active Comm on osteoarthr Spirit itis of - [facility] right knee [facility] Allergies, Adverse Reactions, Alerts This patient has no known allergies or adverse reactions. Social History Social Habit Start Date Stop Date Quantity Comments Source History of Tobacco Common [facility] - [facility] Use [facility] Sex Assigned At [birth year] [facility] 00:00:00 00:00:00 MD [facility] Smoking Status Start Date Stop Date Source Former Smoker 2022-03-29 00:00:00 2022-03-29 00:00:00 Common [facility] Medications Ordered Filled Start Stop Current Ordering Indication Dosage Frequency Signature Comments Components Source Medication Medication Date Date Medication? Clinician (SIG) Name Name HYDROcodone HYDROcodone No 1{table QID HYDROcodon -Acetaminop -Acetaminop 3-29 t_as_ne e-Acetamin hen 5-325 hen 5-325 00:00: eded} ophen MG MG 00 5-325 MG HYDROcodone HYDROcodone No 1{table QID HYDROcodon -Acetaminop -Acetaminop 3-03 t_as_ne e-Acetamin hen 7.5-325 hen 7.5-325 00:00: eded} ophen MG MG 00 7.5-325 MG HYDROcodone HYDROcodone No 1{table HYDROcodon -Acetaminop -Acetaminop 2-21 t_as_ne e-Acetamin hen 7.5-325 hen 7.5-325 00:00: eded} ophen MG MG 00 7.5-325 MG Xarelto 10 Xarelto 10 No 1{table QD Xarelto 10 MG MG 2-21 t} MG 00:00: 00 Bupivicaine Bupivicaine 2020-0 No 4mL Common Salix Salix 7-13 Spirit 00:00: - [facility] Kenalog Kenalog 2020-0 No 40mg Common (Triamcinol (Triamcinol 7-13 S pirit one) one) 00:00: - [facility] HYDROcodone HYDROcodone No HYDROcodon -Acetaminop -Acetaminop e-Acetamin hen hen ophen Anastrozole Anastrozole No Anastrozol e Calcium + D Calcium + D No Calcium + D Multivitami Multivitami No Multivitam n n in Pseudoeph-B Pseudoeph-B No Pseudoeph- romphen-DM romphen-DM Bromphen-D M methylPREDN methylPREDN No methylPRED ISolone ISolone NISolone Vital Signs Vital Name Observation Time Observation Value Comments Source height 2022-03-28 09:00:00 61 [in_i] Common [facility] weight 2022-03-28 09:00:00 162 [lb_av] Common S [facility] bmi 2022-03-28 09:00:00 30.61 kg/m2 Common [facility] blood pressure 2022-03-28 09:00:00 138 mm[Hg] Common [facility] - systolic [facility] blood pressure 2022-03-28 09:00:00 72 mm[Hg] Common [facility] - diastolic [facility] Procedures This patient has no known procedures. Plan of Care Planned Activity Planned Date Details Comments Source Future Scheduled 2022-02-22 COVID-19 Vaccination [facility] Test 07:32:37 (#1) [code = COVID-19 And tamika Cancer Vaccination (#1)] Center Encounters Start End Encounter Admission Attending Care Care Encounter Source Date/Time Date/Time Type Type Clinicians Facility Department ID 2022-03-28 Outpatient [facility] [id number] Common 09:04:01 [place] [facility] 2022-03-27 Outpatient [facility] [id number] Common 15:19:01 [facility] 2021-12-28 Outpatient [facility] [id number] Common 09:49:03 [facility] 2021-12-22 Outpatient [facility] [id number] Common 12:59:00 [facility] 2021-10-06 Outpatient [facility] [id number] Common 10:02:02 [facility] 2021-02-11 Outpatient SYSTEM, MDA MDA [id number] 14:32:22 PROVIDER Gregg o n 2022-03-28 2022-03-28 OFFICE [facility] [id number] Co mmon 00:00:00 00:00:00 VISIT EST Spir it PT LEVEL 3 - [facility] Results This patient has no known results.
--- OUTSIDE RECORDS SUMMARY | 2022-08-05 12:16 | XMS REPORT | Clinical Summary ---
:1945 Author Organization [facility] MD [facility] Address [address] [place] [address] Care Team Providers Name Role Phone Jitendra Garnett MD Primary Care Provider Vinicius Mills MD Unavailable Allergies Not on File Medications Not on file Active Problems Not on file Social History Tobacco Use Types Packs/Day Years Used Date Smoking Tobacco: Never Assessed Sex Assigned at Date Recorded Not on file Job Start Date Occupation Industry Not on file Not on file Not on file Last Filed Vital Signs Not on file Plan of Treatment Health Maintenance Due Date Last Done Comments COVID-19 Vaccination (#1) 1945 Results Not on fileafter 08/05/2021 Care Teams Financial Operations Clerk Relationship Specialty Start Date End Date Jitendra Garnett MD PCP - General Breast Surgery 02/11/[address] [place] [id number] Vinicius Mills PCP - External Referring Obstetrics/Gynecology 02/11 MD Gabe [address] [place] [id number]
[2022-08-05] MEDS ORDERED: ACETAMINOPHEN 325 MG TABLET ONE (12:38)
[2022-08-05] MEDS ORDERED: LEVALBUTEROL 1.25 MG/3 ML NEB ONE (12:38)
[2022-08-05 13:19] LABS: SARS-COV-2 RT PCR POSITIVE (NEGATIVE)
--- NOTE | 2022-08-05 13:40 | RAD REPORT ---
EXAM DESCRIPTION: Juan Single View08/05/2022 1:16 pm CLINICAL HISTORY: Cough COMPARISON: September 2021 FINDINGS: The lungs appear clear of acute infiltrate. The heart is normal size IMPRESSION: No acute abnormalities displayed
--- NOTE | 2022-08-05 13:47 | ER ---
Nurse's Notes [facility] Name: Bobbi Eller Age: 77 yrs Sex: Female : 1945 Arrival Date: 08/05/2022 Time: 12:11 Bed 17 Private MD: Diagnosis: Coronavirus infection, unspecified Presentation: 08/05 12:19 Chief complaint: Patient states: Flu-like symptoms that started yesterday, reports sore ph throat, low grade fever, body aches, eyes burning. Denies N/V/D or abdominal pain, also denies cough or SOB. Coronavirus screen: Vaccine status: Patient reports being unvaccinated. Ebola Screen: No symptoms or risks identified at this time. Initial Sepsis Screen: Does the patient meet any 2 criteria? No. Patient's initial sepsis screen is negative. Does the patient have a suspected source of infection? No. Patient's initial sepsis screen is negative. Risk Assessment: Do you want to hurt yourself or someone else? Patient reports no desire to harm self or others. Onset of symptoms was August 05, 2022. 12:19 Method Of Arrival: Ambulatory ph 12:19 Acuity: CECILIA 4 ph Triage Assessment: 12:21 General: Appears in no apparent distress. Behavior is calm, cooperative, Reports chills ph for fever for 12-24 hours. Pain: Complains of pain in when swallowing. Neuro: Level of Consciousness is awake, alert, obeys commands, Oriented to person, place, time, situation. Respiratory: Airway is patent Respiratory effort is even, unlabored. Derm: Skin is healthy with good turgor, Skin is pink, warm \T\ dry. Historical: - Allergies: 12:21 No Known Allergies; ph - PMHx: 12:21 breast cancer; ph - Immunization history:: Adult Immunizations unknown, Flu vaccine is not up to date. - Social history:: Smoking status: Patient denies any tobacco usage or history of. Screenin:30 Abuse screen: Denies threats or abuse. Denies injuries from another. Nutritional kb3 screening: No deficits noted. Tuberculosis screening: No symptoms or risk factors identified. Fall Risk No fall in past 12 months (0 pts). 14:18 [facility] ED Fall Risk Assessment (Adult) History of falling in the last 3 months, kb3 including since admission No falls in past 3 months (0 pts) Confusion or Disorientation No (0 pts) Intoxicated or Sedated No (0 pts) Impaired Gait No (0 pts) Mobility Assist Device Used No (0 pt) Altered Elimination No (0 pt) Score/Fall Risk Level 0 - 2 = Low Risk Oriented to surroundings, Maintained a safe environment, Hourly rounding (assess needs \T\ fall precautionary measures) done. Assessment: 12:30 Reassessment: Patient appears in no apparent distress at this time. No changes from kb3 previously documented assessment. General: Appears in no apparent distress. ill, Behavior is calm, cooperative, Received care of pt from triage. Pt reports she began feeling unwell yesterday with sore throat, watery eyes, chills, body aches and fever. Pt denies CP and SOB. 12:30 Respiratory: Breath sounds are clear bilaterally. kb3 13:30 Reassessment: No changes from previously documented assessment. Patient and/or family kb3 updated on plan of care and expected duration. Pain level reassessed. Vital Signs: 12:19 BP 155 / 79; Pulse 87; Resp 18; Temp 100.1; Pulse Ox 99% on R/A; Weight 74.84 kg; ph Height 5 ft. 5 in. (165.10 cm); 14:00 BP 142 / 72; Pulse 80; Resp 18; Temp 100.4; Pulse Ox 99% ; kb3 12:19 Body Mass Index 27.46 (74.84 kg, 165.10 cm) ph ED Course: 12:11 Patient arrived in ED. rg4 12:16 Dago Vicente PA is PHCP. [facility] 12:16 Greg Chacon MD is Attending Physician. [facility] 12:17 Myrna Maddox, MODESTA is Primary Nurse. kb3 12:21 Triage completed. ph 12:21 Arm band placed on Patient placed in an exam room. ph 12:30 Patient has correct armband on for positive identification. Bed in low position. Call kb3 light in reach. 12:30 No provider procedures requiring assistance completed. Patient did not have IV access kb3 during this emergency room visit. 13:17 Chest Single View XRAY In Process Unspecified. EDMS Administered Medications: 12:42 Drug: Acetaminophen 650 mg Route: PO; kb3 13:30 Follow up: Response: No adverse reaction; Temperature is decreased kb3 12:42 Drug: Xopenex (levalbuterol) (3) 1.25 mg Route: Inhalation; kb3 13:30 Follow up: Response: No adverse reaction kb3 14:06 Drug: Decadron - Dexamethasone 10 mg {Note: Please give IM instead of IVP per Dago BRANDT, kb3 given in left ventrogluteal.} Route: IVP; Site: Other; 14:17 Follow up: Response: No adverse reaction; Medication administered at discharge. kb3 Medication: 12:30 VIS not applicable for this client. kb3 Outcome: 13:47 Discharge ordered by MD. gilmore 14:17 Discharged to home ambulatory. kb3 14:17 Condition: stable 14:17 Discharge instructions given to patient, Instructed on discharge instructions, follow up and referral plans. medication usage, Demonstrated understanding of instructions, follow-up care, medications, Prescriptions given X 1. 14:35 Patient left the ED. kb3 Signatures: Dispatcher [employer] EDMS Dago Vicente PA PA jmm Hall, Patricia, RN RN Chen Borrero 4 Myrna Maddox RN RN kb3
--- NOTE | 2022-08-05 13:47 | EDPHYS ---
Physician Documentation [facility] Name: Bobbi Eller Age: 77 yrs Sex: Female : 1945 Arrival Date: 08/05/2022 Time: 12:11 Bed 17 Private MD: ED Physician Greg Chacon HPI: 08/05 12:16 This 77 yrs old Female presents to ER via Ambulatory with complaints of Flu Symptoms. [facility] 12:16 This is a 77-year-old female with history of breast cancer the presents emerged [facility] department with complaints of sore throat, cough, body aches symptoms began yesterday around 11 AM per the patient. Denies shortness of breath. Denies vomiting. Denies abdominal pain. Denies chest pain.. Historical: - Allergies: 12:21 No Known Allergies; ph - PMHx: 12:21 breast cancer; ph - Immunization history:: Adult Immunizations unknown, Flu vaccine is not up to date. - Social history:: Smoking status: Patient denies any tobacco usage or history of. ROS: 12:16 Constitutional: Positive for body aches, chills. [facility] 12:16 ENT: Positive for sore throat. 12:16 Respiratory: Positive for cough. 12:16 All other systems are negative. Exam: 12:16 Constitutional: This is a well developed, well nourished patient who is awake, alert, jmm and in no acute distress. Head/Face: atraumatic. Eyes: EOMI, no conjunctival erythema appreciated ENT: Moist Mucus Membranes Neck: Trachea midline, Supple Chest/axilla: Normal chest wall appearance and motion. Cardiovascular: Regular rate and rhythm. No edema appreciated 12:16 Abdomen/GI: Non distended Back: Normal ROM Skin: General appearance color normal MS/ Extremity: Moves all extremities, no obvious deformities appreciated, no edema noted to the lower extremities Neuro: Awake and alert Psych: Behavior is normal, Mood is normal, Patient is cooperative and pleasant 12:16 Respiratory: the patient does not display signs of respiratory distress, Respirations: normal, Breath sounds: wheezing: that is mild, is scattered. Vital Signs: 12:19 BP 155 / 79; Pulse 87; Resp 18; Temp 100.1; Pulse Ox 99% on R/A; Weight 74.84 kg; ph Height 5 ft. 5 in. (165.10 cm); 14:00 BP 142 / 72; Pulse 80; Resp 18; Temp 100.4; Pulse Ox 99% ; kb3 12:19 Body Mass Index 27.46 (74.84 kg, 165.10 cm) ph MDM: 12:22 Patient medically screened. [facility] 13:46 Data reviewed: vital signs, nurses notes. Counseling: I had a detailed discussion with [facility] the patient and/or guardian regarding: the historical points, exam findings, and any diagnostic results supporting the discharge/admit diagnosis, lab results, radiology results, the need for outpatient follow up, to return to the emergency department if symptoms worsen or persist or if there are any questions or concerns that arise at home. ED course: Patient is alert nontoxic in appearance in the ED. No signs respiratory distress. Patient vies follow-up with PCP and otherwise given strict return precautions. Patient understood agrees to plan of care.. 08/05 12:15 Order name: COVID-19/FLU A+B; Complete Time: 13:21 08/05 12:20 Order name: Strep; Complete Time: 13:21 kb3 08/05 12:23 Order name: Chest Single View XRAY; Complete Time: 13:43 [facility] 08/05 13:06 Order name: Throat Culture EDMS Administered Medications: 12:42 Drug: Acetaminophen 650 mg Route: PO; kb3 13:30 Follow up: Response: No adverse reaction; Temperature is decreased kb3 12:42 Drug: Xopenex (levalbuterol) (3) 1.25 mg Route: Inhalation; kb3 13:30 Follow up: Response: No adverse reaction kb3 14:06 Drug: Decadron - Dexamethasone 10 mg {Note: Please give IM instead of IVP per alessandro Hunter given in left ventrogluteal.} Route: IVP; Site: Other; 14:17 Follow up: Response: No adverse reaction; Medication administered at discharge. kb3 Disposition: 14:55 Co-signature as Attending Physician, Greg Chacon MD. rn Disposition Summary: 08/05/22 13:47 Discharge Ordered Location: Home [facility] Condition: Stable jm Diagnosis - Coronavirus infection, unspecified jmm Followup: [facility] - With: Private Physician - When: 2 - 3 days - Reason: Recheck today's complaints, Continuance of care, Re-evaluation by your physician Discharge Instructions: - Discharge Summary Sheet [facility] - COVID-19 [facility] Forms: - Medication Reconciliation Form [facility] - Thank You Letter mando - Antibiotic Education james - Prescription Opioid Use [facility] Prescriptions: - albuterol sulfate 90 mcg/actuation Inhalation HFA aerosol inhaler - inhale 2 puff by INHALATION route every 4 hours; 1 Pump; Refills: 0, Product [facility] Selection Permitted Signatures: Dispatcher [employer] Dago Cleveland PA PA jmm Nieto, Roman, MD MD rn Hall, Patricia, RN RN ph Myrna Mdadox RN RN kb3
[2022-08-05] MEDS ORDERED: dexAMETHasone 10 MG/ML VIAL ONE (13:58)
[2022-08-05 14:39] VITALS: O2SAT 99
[2022-08-05 14:40] VITALS: BP 142/72; TEMP 100.4
== END 2022-08-05 14:35 | disposition home or self-care (01) ==
LOC: ER 12:09
DX: U07.1 COVID-19 (principal); Z85.3 Personal history of malignant neoplasm of breast
CPT/HCPCS: 87070; 87081; 0240U; 71045; J7614; J1100; 96374; 99284